=== PATIENT | male | born 1970 | race Caucasian/White ===

== ENCOUNTER 2016-09-01 16:29 | Emergency (ER) | payer BC ==
[2016-09-01 16:37] VITALS: BP 151/78
--- NOTE | 2016-09-01 18:21 | UC ---
Hand/Wrist HPI - HPI Summary HPI Summary: Pain and swelling right middle finger around nail after trimming nails recently - History Of Current Complaint Chief Complaint: UCUpperExtremity Stated Complaint: RIGHT HAND MIDDLE FINGER COMPLAINT Time Seen by Provider: 09/01/16 18:18 Hx Obtained From: Patient ?: No Mechanism Of Injury: trimming nails Onset/Duration: Sudden Onset Severity Initially: Moderate Severity Currently: Moderate Character Of Pain: Aching, Throbbing Aggravating Factor(s): Movement Alleviating: Rest, Elevation Associated Signs And Symptoms: Positive: Swelling, Redness Related History: Dominant Hand Right - Allergies/Home Medications Allergies/Adverse Reactions: Allergies Allergy/AdvReac Type Severity Reaction Status Date / Time Levofloxacin [From Levaquin] Allergy See Comment Verified 09/01/16 16:37 Home Medications: Home Medications Cholecalciferol [Vitamin D-3] 10,000 units PO DAILY 09/01/16 [History Confirmed 09/01/16] Coenzyme Q10 (Ubidecarenone) [Co Q-10] 200 mg PO DAILY 09/01/16 [History Confirmed 09/01/16] Glipizide [Glipizide ER] 5 mg PO DAILY 09/01/16 [History Confirmed 09/01/16] Lisinopril/HCTZ 20/12.5(NF) [Zestoretic 20/12.5(NF)] 1 tab PO DAILY 09/01/16 [ History Confirmed 09/01/16] Multiple Vitamins W/ Minerals [Multivitamin Adults] 1 tab PO DAILY 09/01/16 [ History Confirmed 09/01/16] Jeremiah-3 Fatty Acids [Fish Oil] 1,000 mg PO DAILY 09/01/16 [History Confirmed ] Sitagliptin Phosphate [Januvia] 100 mg PO DAILY 09/01/16 [History Confirmed ] buPROPion TAB* [Wellbutrin TAB*] 100 mg PO BID 09/01/16 [History Confirmed 09/01] PMH/Surg Hx/FS Hx/Imm Hx Previously Healthy: No Endocrine History Of: Reports: Diabetes - DM 2, Thyroid Disease - Magdi's Cardiovascular History Of: Reports: Hypertension Denies: Cardiac Disorders Respiratory History Of: Denies: COPD, Asthma GI/ History Of: Denies: Ulcer - Surgical History Surgical History: Yes Surgery Procedure, Year, and Place: cholecystectomy 1989; extraction all lowers and uppers (full dentures) - Family History Known Family History: Positive: None Family History: No reported cardiovascular issues in family lineage - Social History Occupation: Employed Full-time Lives: With Family Alcohol Use: Occasionally Substance Use Type: None Smoking Status (MU): Heavy Every Day Tobacco Smoker Type: Cigarettes Amount Used/How Often: 1.5 ppd Cessation Counseling: Counseled 3+Min - 10 Min Review of Systems Constitutional: Negative Skin: Other - pain swelling around right middle nail Eyes: Negative ENT: Negative Respiratory: Negative Cardiovascular: Negative Gastrointestinal: Negative Genitourinary: Negative Motor: Negative Neurovascular: Negative Musculoskeletal: Edema - right distal middle fingere, Myalgia - right distal middle finger Neurological: Negative Psychological: Negative All Other Systems Reviewed And Are Negative: Yes Physical Exam Triage Information Reviewed: Yes Appearance: Well-Appearing, No Pain Distress, Well-Nourished Vital Signs: Initial Vital Signs Temp 98.8 F 09/01/16 16:34 Pulse 92 09/01/16 16:34 Resp 16 09/01/16 16:34 BP 151/78 09/01/16 16:34 Pulse Ox 99 09/01/16 16:34 Vital Signs Reviewed: Yes Eye Exam: Normal Eyes: Positive: Conjunctiva Clear ENT Exam: Normal ENT: Positive: Normal ENT inspection, Hearing grossly normal, Pharynx normal, TMs normal. Negative: Nasal congestion, Nasal drainage, Trismus, Muffled/ hoarse voice Dental Exam: Normal Neck exam: Normal Neck: Positive: Supple, Nontender, No Lymphadenopathy Respiratory Exam: Normal Respiratory: Positive: Chest non-tender, Lungs clear, Normal breath sounds, No respiratory distress, No accessory muscle use Cardiovascular Exam: Normal Cardiovascular: Positive: RRR, No Murmur, Pulses Normal, Brisk Capillary Refill Abdomen Description: Positive: Splenomegaly Musculoskeletal Exam: Normal Musculoskeletal: Positive: Strength Intact, ROM Intact, Edema @ - distal right middle finger Neurological Exam: Normal Neurological: Positive: Alert, Muscle Tone Normal Psychological Exam: Normal Skin Exam: Normal Hand/Wrist Course/Dx - Course Course Of Treatment: keflex, follow BP with pcp, nictone cesation information, warm soaks - Differential Dx/Diagnosis Differential Diagnosis/HQI/PQRI: Contusion, Paronychia, Puncture Wound, Sprain, Strain Provider Diagnoses: Paronychia right 3rd finger, nicotine dependant, poorly controlled hypertension Discharge - Discharge Plan Condition: Stable Disposition: HOME Prescriptions: Sulfamethox/Trimethoprim DS* [Bactrim DS 800/160 TAB*] 1 tab PO BID #20 tab Patient Education Materials: Paronychia (ED), DASH Eating Plan (ED), Hypertension (ED), Warm Compress or Soak (ED) Referrals: [facility] [Outside] - 2 Weeks
== END 2016-09-01 18:25 | disposition home or self-care (01) ==
LOC: UCEAST 16:29
DX: L03.011 Cellulitis of right finger (principal); B96.89 Other specified bacterial agents as the cause of diseases classified elsewhere; Z71.6 Tobacco abuse counseling; F17.210 Nicotine dependence, cigarettes, uncomplicated; I10 Essential (primary) hypertension
CPT/HCPCS: 99212; G0463

== ENCOUNTER 2016-09-09 08:48 | Emergency (ER) | payer BC ==
[2016-09-09 08:56] VITALS: BP 130/72
--- NOTE | 2016-09-09 09:42 | UC ---
Jesus Avina Salem, scribed for Scarlett Coombs MD on 09/09/16 at 0932 . Skin Complaint HPI - HPI Summary HPI Summary: Patient is a 46 y/o M who presents to the with an infection and 3/10 pain to the right 3rd finger. Pt was seen here 8 days ago and was put on Bactrim. He denies any improvement of sx. Pt currently reports erythema, discoloration, and edema around nail, but denies drainage, fever, or a headache. He states that he has been using triple antibiotics and soaking it in hot water with little alleviation. Pt reports a hx of skin infection. Patients medication reviewed this visit. - History of Current Complaint Chief Complaint: UCSkin Stated Complaint: FINGER INFECTION Hx Obtained From: Patient Onset/Duration: Gradual Onset, Lasting Days, Still Present Timing: Constant Onset Severity: Moderate Current Severity: Moderate Pain Intensity: 3 Pain Scale Used: 0-10 Numeric Location: Hand (Right) - 3rd finger. Character: Swelling, Pain, Redness Aggravating: Nothing Alleviating: Other - Soaking in hot water. Triple antibiotics. Associated Signs & Symptoms: Negative: Fever, Drainage - Allergy/Home Medications Allergies/Adverse Reactions: Allergies Allergy/AdvReac Type Severity Reaction Status Date / Time Levofloxacin [From Levaquin] Allergy See Comment Verified 09/09/16 09:04 Review of Systems Constitutional: Fatigue - works about 70 hours per week., Other - diabetes treated, no increase in fingerstick readings recently. Skin: Other - Erythema, pain, discoloration, and edema around nail of right 3rd finger. No drainage. Neurological: Negative All Other Systems Reviewed And Are Negative: Yes PMH/Surg Hx/FS Hx/Imm Hx Endocrine History: Diabetes - Surgical History Surgical History: Yes Surgery Procedure, Year, and Place: cholecystectomy 1989; extraction all lowers and uppers (full dentures) - Family History Known Family History: Negative: Cardiac Disease Family History: No reported cardiovascular issues in family lineage - Social History Alcohol Use: Occasionally Substance Use Type: None Smoking Status (MU): Heavy Every Day Tobacco Smoker Type: Cigarettes Amount Used/How Often: 1.5 ppd Physical Exam Triage Information Reviewed: Yes Appearance: Well-Appearing, Pain Distress - moderate with palpation of digit. Vital Signs: Initial Vital Signs Temp 97.8 F 09/09/16 08:52 Pulse 86 09/09/16 08:52 Resp 16 09/09/16 08:52 BP 130/72 09/09/16 08:52 Pulse Ox 99 09/09/16 08:52 Vital Signs Reviewed: Yes Neck exam: Normal Respiratory: Positive: Lungs clear, Normal breath sounds Cardiovascular: Positive: RRR, No Murmur Psychological Exam: Normal Skin Exam: Other - right third digit with erythema and swelling along the medial side of the nail. There is no pointing or drainage. Area about 1.5 x 2 cm , indurated. No erythema beyond the DIP joint. Course/Dx - Course Course Of Treatment: stop bactrim, change to augmentin, increase soaks, monitor for need for I+D. - Differential Diagnoses - Skin Complaint Differential Diagnoses: Abscess, Cellulitis - Diagnoses Provider Diagnoses: paronychia right hand third digit. Discharge - Discharge Plan Condition: Stable Disposition: HOME Prescriptions: Amoxicillin/Clavulanate TAB* [Augmentin TAB 875*] 875 mg PO BID #20 tab Patient Education Materials: Paronychia (ED) Referrals: No Primary Care Phys,NOPCP [Primary Care Provider] - Additional Instructions: There is not yet a collection of pus which can be drained. Ensure that you are soaking your infected finger in hot water and salt for 5 to 10 minutes at least 3 times per day. Discontinue bactrim, and begin augmentin. Use ibuprofen 600mg up to 4 times per day to control pain. Should the area form an abscess, please return here to to Dr. White for incision and drainage. The documentation as recorded by the Jesus suh Salem accurately reflects the service I personally performed and the decisions made by me, Scarlett Coombs MD.
== END 2016-09-09 09:41 | disposition home or self-care (01) ==
LOC: UCEAST 08:48
DX: L03.011 Cellulitis of right finger (principal); E11.9 Type 2 diabetes mellitus without complications; Z72.0 Tobacco use
CPT/HCPCS: 99212; G0463

== ENCOUNTER 2017-02-24 11:23 | Emergency (ER) | payer BC ==
--- NOTE | 2017-02-24 12:37 | UC ---
Skin Complaint HPI - HPI Summary HPI Summary: Patient presents with complaints of painful skin eruptions on his right buttock , and now the sacrum. He states that prior to the outbreak he had two days where he did not feel well with fatigue and malaise. He states he has a history of shingles and believes that these symptoms are consistent with his previous outbreaks. He states the pain is worse when he sits down. He denies fever, chills, nausea, vomiting, diarrhea. - History of Current Complaint Chief Complaint: UCSkin Time Seen by Provider: 02/24/17 12:19 Stated Complaint: SHINGLES OUTBREAK Hx Obtained From: Patient Onset/Duration: Gradual Onset, Lasting Days Skin Exposure Onset/Duration: Days Ago Timing: Constant Onset Severity: Mild Current Severity: Moderate Location: Discrete, Other - right buttock and sacrum Character: Swelling, Redness, Painful Aggravating Factor(s): Touch Alleviating Factor(s): Nothing Associated Signs & Symptoms: Positive: Negative Similar Episode/Dx as: shingles - Allergy/Home Medications Allergies/Adverse Reactions: Allergies Allergy/AdvReac Type Severity Reaction Status Date / Time Levofloxacin [From Levaquin] Allergy See Comment Verified 02/24/17 11:48 Review of Systems Constitutional: Negative Skin: Rash Eyes: Negative ENT: Negative Respiratory: Negative Cardiovascular: Negative Gastrointestinal: Negative Genitourinary: Negative Motor: Negative Neurovascular: Negative Musculoskeletal: Negative Neurological: Negative Psychological: Negative All Other Systems Reviewed And Are Negative: Yes PMH/Surg Hx/FS Hx/Imm Hx Previously Healthy: Yes Endocrine History: Hypothyroidism Cardiovascular History: Hypertension - Surgical History Surgical History: Yes Surgery Procedure, Year, and Place: cholecystectomy 1989; extraction all lowers and uppers (full dentures) - Family History Known Family History: Positive: None Negative: Cardiac Disease Family History: No reported cardiovascular issues in family lineage - Social History Occupation: Employed Full-time Lives: Alone Alcohol Use: Occasionally Substance Use Type: None Smoking Status (MU): Heavy Every Day Tobacco Smoker Type: Cigarettes Amount Used/How Often: 1.5 ppd Physical Exam Triage Information Reviewed: Yes Appearance: Well-Appearing Vital Signs: Initial Vital Signs Temp 98.2 F 02/24/17 11:43 Pulse 86 02/24/17 11:43 Resp 18 02/24/17 11:43 Pulse Ox 100 02/24/17 11:43 Vital Signs Reviewed: Yes Eye Exam: Normal ENT Exam: Normal Neck exam: Normal Neck: Positive: 1 Respiratory Exam: Normal Cardiovascular Exam: Normal Abdominal Exam: Normal Musculoskeletal Exam: Normal Neurological Exam: Normal Psychological Exam: Normal Skin: Positive: Other - vesicular lesion in dematomal pattern in various stages of healing on right buttock and sacrum. Course/Dx - Course Course Of Treatment: Patient presents with clinical evidence consistent with shingles. He was treated with famvir 500 mg tid x 7 days. I recommend he f/u with PCP in tow days to discuss shingles vaccine, or suppression therapy. - Differential Diagnoses - Skin Complaint Differential Diagnoses: Varicella Zoster - Diagnoses Provider Diagnoses: varicella zoster Discharge - Discharge Plan Condition: Stable Disposition: HOME Prescriptions: Famciclovir(NF) [Famvir(NF)] 500 mg PO TID #21 tab Patient Education Materials: Shingles (ED) Forms: *Work Release Referrals: No Primary Care Phys,NOPCP [Primary Care Provider] -
== END 2017-02-24 12:34 | disposition home or self-care (01) ==
LOC: UCEAST 11:23
DX: B01.9 Varicella without complication (principal); B02.9 Zoster without complications; Z72.0 Tobacco use
CPT/HCPCS: 99212; G0463

== ENCOUNTER 2017-03-19 15:14 | Emergency (ER) | payer BC ==
[2017-03-19 15:45] VITALS: BP 132/75
[2017-03-19] MEDS ORDERED: cefTRIAXone VIAL(*) 250 MG VIAL IM ONE (16:03)
[2017-03-19] MEDS ORDERED: Azithromycin TAB* 250 MG PO ONE (16:04)
[2017-03-19] MEDS ORDERED: Lidocaine 1% MPF* 2 ML VIAL ONE (16:13)
--- NOTE | 2017-03-19 17:01 | UC ---
Complaint Male HPI - HPI Summary HPI Summary: TWO DAYS OF PURULENT DISCHARGE FROM [facility] IN MORNING. CLEAR THICK DISCHARGE THROUGHOUT THE DAY. HAD MSM RELATIONSHIP WITH NEW SEXUAL PARTNER LAST WEEK. - History of Current Complaint Chief Complaint: UCGeneralIllness Stated Complaint: PERSONAL Time Seen by Provider: 03/19/17 15:31 Hx Obtained From: Patient Onset/Duration: Gradual Onset, Lasting Days, Still Present Timing: Intermittent Severity Initially: Mild Severity Currently: Mild Pain Intensity: 0 Pain Scale Used: 0-10 Numeric Location: Penis Aggravating Factor(s): Voiding Alleviating Factor(s): Nothing Associated Signs And Symptoms: Positive: Penile Discharge. Negative: Back Pain , Fever, Hematuria, Dysuria, Blood in Stool, Rectal Pain, Appetite, Nausea, Vomiting(# Of Episodes =), Penile Swelling - Risk Factors Testicular Torsion: Negative - Allergies/Home Medications Allergies/Adverse Reactions: Allergies Allergy/AdvReac Type Severity Reaction Status Date / Time Levofloxacin [From Levaquin] Allergy See Comment Verified 03/19/17 15:22 PMH/Surg Hx/FS Hx/Imm Hx Previously Healthy: Yes - Surgical History Surgical History: Yes Surgery Procedure, Year, and Place: cholecystectomy 1989; extraction all lowers and uppers (full dentures) - Family History Known Family History: Positive: None Negative: Cardiac Disease Family History: No reported cardiovascular issues in family lineage - Social History Occupation: Employed Full-time Lives: With Family Alcohol Use: Occasionally Substance Use Type: None Smoking Status (MU): Heavy Every Day Tobacco Smoker Type: Cigarettes Amount Used/How Often: 1.5 ppd Cessation Counseling: Patient Advised to Stop - Immunization History Most Recent Influenza Vaccination: no Review of Systems Constitutional: Negative Skin: Negative Eyes: Negative ENT: Negative Respiratory: Negative Cardiovascular: Negative Gastrointestinal: Negative Genitourinary: Vaginal/Penile Discharge Motor: Negative Neurovascular: Negative Musculoskeletal: Negative Neurological: Negative Psychological: Negative Is Patient Immunocompromised?: No All Other Systems Reviewed And Are Negative: Yes Physical Exam Triage Information Reviewed: Yes Appearance: Well-Appearing, No Pain Distress, Well-Nourished Vital Signs: Initial Vital Signs Temp 97.8 F 03/19/17 15:23 Pulse 100 03/19/17 15:23 Resp 16 03/19/17 15:23 BP 132/75 03/19/17 15:23 Pulse Ox 100 03/19/17 15:23 Vital Signs Reviewed: Yes Eye Exam: Normal ENT Exam: Normal ENT: Positive: Normal ENT inspection, Hearing grossly normal, Pharynx normal, TMs normal Dental Exam: Normal Neck exam: Normal Neck: Positive: Supple, Nontender, No Lymphadenopathy Respiratory Exam: Normal Respiratory: Positive: Chest non-tender, Lungs clear, Normal breath sounds, No respiratory distress Cardiovascular Exam: Normal Cardiovascular: Positive: RRR, No Murmur, Pulses Normal Abdominal Exam: Normal Abdomen Description: Positive: Nontender, No Organomegaly Musculoskeletal Exam: Normal Musculoskeletal: Positive: Strength Intact, ROM Intact Neurological Exam: Normal Psychological Exam: Normal Skin Exam: Normal - Additional Comments NO LESIONS ON EXTERNAL GENITALIA; NO ACTIVE DISCHARGE FROM [facility]. NO SCROTAL MASSES OR LESIONS. Complaint Male Course/Dx - Differential Dx/Diagnosis Differential Diagnosis/HQI/PQRI: Epididymitis, Prostatitis, Urinary Tract Infection Provider Diagnoses: STI PROPHYLAXIS Discharge - Discharge Plan Condition: Stable Disposition: HOME Patient Education Materials: Sexually Transmitted Diseases (ED) Referrals: Trever White MD [Primary Care Provider] -
== END 2017-03-19 16:44 | disposition home or self-care (01) ==
LOC: UCCORT 15:14
DX: R36.9 Urethral discharge, unspecified (principal); Z11.3 Encounter for screening for infections with a predominantly sexual mode of transmission; Z88.1 Allergy status to other antibiotic agents; F17.210 Nicotine dependence, cigarettes, uncomplicated
CPT/HCPCS: 87491; 87591; 96372; 99212; A9270-GY; G0463; J0696

== ENCOUNTER 2022-08-07 07:22 | Inpatient (IN) ==
[2022-08-07 09:26] LABS: ABS Lymphocytes 2.1 10^3/uL (1.0-4.8); ABS Monocytes 0.8 10^3/uL (0.0-1.1); ABS Neutrophils 6.1 10^3/uL (1.5-7.6); Eosinophil % 0.5 %; Hematocrit 20.2 % (38-53); Hemoglobin 6.9 g/dL (13.2-16.3); Lymphocyte % 23.5 %; Mean Corpuscular Hemoglobin 30.3 pg (27-33); Mean Corpuscular Hgb Conc 34.4 g/dL (31-36); Mean Corpuscular Volume 88.1 fL (80-97); Mean Platelet Volume 7.5 fL (7.5-11.2); Platelet Count 208 10^3/uL (150-450); Red Blood Count 2.29 10^6/uL (4.06-5.63); Red Cell Distribution Width 17.1 % (12-17)
[2022-08-07 09:48] LABS: Albumin 2.7 g/dL (3.2-5.2); Albumin/Globulin Ratio 0.3 (1-3); Calcium 8.1 mg/dL (8.6-10.3); Creatinine, Serum 5.5 mg/dL (0.67-1.17); Globulin 8.8 g/dL (2-4); Magnesium 1.9 mg/dL (1.9-2.7); Phosphorus 5.6 mg/dL (2.5-5.0); Potassium 3.6 mmol/L (3.5-5.0); Total Bilirubin 0.3 mg/dL (0.2-1.0); Total Protein 11.5 g/dL (6.4-8.9); eGFR CKD-EPI 11.8 (>60)
[2022-08-07] MEDS ORDERED: Ondansetron 4 mg VIAL 2 MG/ML 2 ml VIAL IV ONE (10:13)
[2022-08-07] MEDS ORDERED: NS 0.9% 1000 ml BAG 1,000 ML IV ONE (10:13)
[2022-08-07 10:14] LABS: Folate 17.43 ng/mL (5.90-24.80)
[2022-08-07 10:29] LABS: High Sensitivity Troponin 1 Hr 10 pg/mL (<20)
[2022-08-07 10:30] LABS: HIV 4th Generation Nonreactive (Nonreactive)
[2022-08-07] MEDS ORDERED: cefTRIAXone 1 gm/50 mL D5W 1 GM/50 ML BAG IV ONE (12:09)
[2022-08-07 12:18] LABS: Urine Appearance Cloudy; Urine Bilirubin Negative (Negative); Urine Blood 2+ (Negative); Urine Color Yellow; Urine Glucose 1+(50 mg/dL) (Negative); Urine Ketones Negative (Negative); Urine Nitrite Negative (Negative); Urine Protein 2+(100 mg/dL) (Negative); Urine Specific Gravity 1.006 (1.002-1.030); Urine Urobilinogen Negative (Negative)
[2022-08-07 12:57] LABS: RBC Parasite Smear No Parasites Seen (No Parasite)
[2022-08-07] MEDS ORDERED: Lactated Ringers 1000 ml BAG 1,000 ML IV SCH (13:00)
[2022-08-07 13:20] LABS: Urine Bacteria 1+ (Absent); Urine Red Blood Cell 1+(3-5/hpf) (Absent); Urine Squamous Epithelial Cell Present (Absent); Urine White Blood Cell 3+(>20/hpf) (Absent)
[2022-08-07] MEDS ORDERED: Pantoprazole VIAL 40 MG VIAL IV ONE (13:25)
[2022-08-07] MEDS ORDERED: NS 0.9% 1000 ml BAG 1,000 ML IV SCH (13:30)
[2022-08-07] MEDS ORDERED: Piperacillin/Tazobac ADVAN 2.25 GM in NS 0.9% 100 ml BAG 100 ML IV ONE (13:33)
[2022-08-07 13:39] LABS: Corrected Retic Count 0.5 % (0.5-1.5); Hematocrit for Retic CNT 24.2 % (38-53); RBC Retic Count 2.69 10^6/ul (4.06-5.63)
[2022-08-07 13:45] LABS: Osmolality Serum 284 mOsm/kg (275-295)
[2022-08-07] MEDS ORDERED: Zosyn per Pharmacy NOTE FOLLOW UP SCH (14:00)
[2022-08-07 14:14] LABS: TSH Ultra Thyroid Stim Horm 0.75 mcIU/mL (0.34-5.60)
[2022-08-07 14:16] LABS: Free T4 0.81 ng/dL (0.61-1.12)
[2022-08-07 14:20] LABS: Ferritin 179.3 ng/mL (24-336)
[2022-08-07] MEDS ORDERED: Zosyn 3.375 GM IV - ED ONCE IV ONE (14:45)
[2022-08-07] MEDS ORDERED: Dextrose 50% Syringe 50 ml 25 GM/50 ML SYRINGE IV PUSH PRN (17:50)
[2022-08-07] MEDS ORDERED: Ondansetron 4 mg VIAL 2 MG/ML 2 ml VIAL IV PRN (17:54)
[2022-08-07 19:35] LABS: Hepatitis B Surface Antigen Nonreactive (Nonreactive)
[2022-08-07 19:40] LABS: Hepatitis A Ab IgM Negative (Negative)
[2022-08-07 19:41] LABS: Hepatitis B Core IgM Nonreactive (Nonreactive)
[2022-08-07 19:53] LABS: Hepatitis C Antibody Negative (Negative)
[2022-08-07 20:26] LABS: ABS Eosinophils 0.1 10^3/uL (0.0-0.5); ABS Lymphocytes 2.9 10^3/uL (1.0-4.8); ABS Monocytes 0.7 10^3/uL (0.0-1.1); ABS Nucleated RBC 0.01 10^3/ul; Eosinophil % 0.9 %; Hematocrit 24.4 % (38-53); Hemoglobin 8.3 g/dL (13.2-16.3); Mean Corpuscular Hemoglobin 29.8 pg (27-33); Mean Corpuscular Hgb Conc 33.9 g/dL (31-36); Mean Platelet Volume 7.3 fL (7.5-11.2); Nucleated Red Blood Cells % 0.1 /100 WBC (0.0-0.4); Platelet Count 209 10^3/uL (150-450); Red Blood Count 2.77 10^6/uL (4.06-5.63); White Blood Count 9.8 10^3/uL (3.6-10.2)
[2022-08-07 20:42] LABS: INR 1.39 (0.88-1.18)
[2022-08-07 21:12] LABS: C Reactive Protein 87.42 mg/L (<8.01); Calcium 7.5 mg/dL (8.6-10.3); Creatinine, Serum 6.62 mg/dL (0.67-1.17); Magnesium 1.9 mg/dL (1.9-2.7); Phosphorus 5.8 mg/dL (2.5-5.0); Potassium 3.6 mmol/L (3.5-5.0); eGFR CKD-EPI 9.4 (>60)
[2022-08-07] MEDS: ZOSYN 3.375 GM Q12H per EXTENDED INFUSION IV SCH (22:40)
[2022-08-07 23:34] LABS: Hematocrit 23.3 % (38-53)
[2022-08-08 07:00] LABS: ABS Eosinophils 0.1 10^3/uL (0.0-0.5); ABS Monocytes 0.6 10^3/uL (0.0-1.1); ABS Neutrophils 4.7 10^3/uL (1.5-7.6); Hematocrit 23.5 % (38-53); Lymphocyte % 26.7 %; Mean Corpuscular Hemoglobin 30.1 pg (27-33); Mean Corpuscular Volume 88.6 fL (80-97); Mean Platelet Volume 7.4 fL (7.5-11.2); Platelet Count 189 10^3/uL (150-450); Red Blood Count 2.65 10^6/uL (4.06-5.63); Red Cell Distribution Width 17.4 % (12-17); White Blood Count 7.4 10^3/uL (3.6-10.2)
[2022-08-08 07:46] LABS: Albumin 2.3 g/dL (3.2-5.2); Albumin/Globulin Ratio 0.3 (1-3); Calcium 7.8 mg/dL (8.6-10.3); Creatinine, Serum 7.11 mg/dL (0.67-1.17); Globulin 7.9 g/dL (2-4); Phosphorus 7.3 mg/dL (2.5-5.0); Potassium 3.7 mmol/L (3.5-5.0); Total Bilirubin 0.2 mg/dL (0.2-1.0); Total Protein 10.2 g/dL (6.4-8.9); eGFR CKD-EPI 8.7 (>60)
[2022-08-08] MEDS ORDERED: NS 0.9% 1000 ml BAG 1,000 ML IV SCH (08:30)
[2022-08-08] MEDS ORDERED: Pantoprazole VIAL 40 MG VIAL IV SCH (09:00)
[2022-08-08] MEDS: ZOSYN 3.375 GM Q12H per EXTENDED INFUSION IV SCH ×2 (09:34→21:27)
[2022-08-08] MEDS ORDERED: Lactated Ringers 1000 ml BAG 1,000 ML IV ONE (14:49)
[2022-08-08 20:23] LABS: Hematocrit 23.1 % (38-53); Hemoglobin 7.8 g/dL (13.2-16.3); Mean Corpuscular Hemoglobin 29.9 pg (27-33); Mean Corpuscular Hgb Conc 33.7 g/dL (31-36); Mean Corpuscular Volume 88.7 fL (80-97); Mean Platelet Volume 7.9 fL (7.5-11.2); Platelet Count 206 10^3/uL (150-450); Red Cell Distribution Width 17.3 % (12-17); White Blood Count 8.3 10^3/uL (3.6-10.2)
[2022-08-08 20:49] LABS: Calcium 7.3 mg/dL (8.6-10.3); Creatinine, Serum 7.73 mg/dL (0.67-1.17); eGFR CKD-EPI 7.8 (>60)
[2022-08-09] MEDS: ZOSYN 3.375 GM Q12H per EXTENDED INFUSION IV SCH ×2 (07:51→21:32)
[2022-08-09 08:36] LABS: ABS Eosinophils 0.1 10^3/uL (0.0-0.5); ABS Lymphocytes 2.2 10^3/uL (1.0-4.8); ABS Monocytes 0.5 10^3/uL (0.0-1.1); ABS Neutrophils 4.5 10^3/uL (1.5-7.6); ABS Nucleated RBC 0.01 10^3/ul; Eosinophil % 1.2 %; Hematocrit 22.2 % (38-53); Hemoglobin 7.5 g/dL (13.2-16.3); Lymphocyte % 30.5 %; Mean Corpuscular Hgb Conc 33.9 g/dL (31-36); Mean Corpuscular Volume 88.5 fL (80-97); Mean Platelet Volume 7.7 fL (7.5-11.2); Nucleated Red Blood Cells % 0.1 /100 WBC (0.0-0.4); Platelet Count 191 10^3/uL (150-450); Red Blood Count 2.51 10^6/uL (4.06-5.63); Red Cell Distribution Width 17.1 % (12-17); White Blood Count 7.4 10^3/uL (3.6-10.2)
[2022-08-09 09:23] LABS: Albumin 2.4 g/dL (3.2-5.2); Albumin/Globulin Ratio 0.3 (1-3); Calcium 7.6 mg/dL (8.6-10.3); Creatinine, Serum 8.46 mg/dL (0.67-1.17); Globulin 7.7 g/dL (2-4); Potassium 4.1 mmol/L (3.5-5.0); Total Bilirubin 0.2 mg/dL (0.2-1.0); Total Protein 10.1 g/dL (6.4-8.9)
[2022-08-09] MEDS: Desmopressin Acetate 30 MCG in NS 0.9% 50 ML 50 ML IVPB ONE ×2 (09:50→11:42)
[2022-08-09 10:13] LABS: Magnesium 1.8 mg/dL (1.9-2.7); Phosphorus 7.8 mg/dL (2.5-5.0)
[2022-08-09] MEDS ORDERED: Magnesium Sulfate 2 gm BAG 2 GM/50 ML BAG IVPB ONE (11:16)
[2022-08-10] MEDS ORDERED: NS 0.9% 1000 ml BAG 200 ML IV PRN ×2 (07:49→16:04)
[2022-08-10] MEDS ORDERED: Albumin Human 25% 25 GM/100 ML BTL IV PRN ×2 (07:49→16:04)
[2022-08-10] MEDS ORDERED: NS 0.9% 1000 ml BAG 100 ML IV PRN ×2 (07:49→16:04)
[2022-08-10] MEDS: ZOSYN 3.375 GM Q12H per EXTENDED INFUSION IV SCH ×2 (08:35→22:15)
[2022-08-10 08:47] LABS: ABS Eosinophils 0.1 10^3/uL (0.0-0.5); ABS Lymphocytes 2.4 10^3/uL (1.0-4.8); ABS Monocytes 0.4 10^3/uL (0.0-1.1); ABS Neutrophils 4.3 10^3/uL (1.5-7.6); ABS Nucleated RBC 0.01 10^3/ul; Eosinophil % 1.4 %; Hematocrit 21.7 % (38-53); Hemoglobin 7.3 g/dL (13.2-16.3); Lymphocyte % 32.8 %; Mean Corpuscular Hemoglobin 30.5 pg (27-33); Mean Corpuscular Hgb Conc 33.5 g/dL (31-36); Mean Corpuscular Volume 91.1 fL (80-97); Mean Platelet Volume 7.8 fL (7.5-11.2); Nucleated Red Blood Cells % 0.1 /100 WBC (0.0-0.4); Platelet Count 202 10^3/uL (150-450); Red Blood Count 2.39 10^6/uL (4.06-5.63); White Blood Count 7.2 10^3/uL (3.6-10.2)
[2022-08-10 08:54] LABS: Albumin 2.4 g/dL (3.2-5.2); Albumin/Globulin Ratio 0.3 (1-3); Calcium 7.8 mg/dL (8.6-10.3); Creatinine, Serum 9.15 mg/dL (0.67-1.17); Globulin 7.8 g/dL (2-4); Magnesium 2.1 mg/dL (1.9-2.7); Phosphorus 7.9 mg/dL (2.5-5.0); Potassium 3.9 mmol/L (3.5-5.0); Total Bilirubin 0.2 mg/dL (0.2-1.0); Total Protein 10.2 g/dL (6.4-8.9); eGFR CKD-EPI 6.4 (>60)
[2022-08-10] MEDS ORDERED: Vancomycin 1,000 MG in NS 0.9% 250 ml 250 ML IVPB ONE (10:00)
[2022-08-10] MEDS ORDERED: Lidocaine 1% VIAL 10 MG/ML VIAL 30 ML ONE (11:39)
[2022-08-10] MEDS ORDERED: Heparin 2 UNITS/ML IVPREMIX 1,000 UNIT/500 ML BAG IV ONE ×2 (11:39→11:46)
[2022-08-10 11:58] LABS: Hepatitis B Surface Antigen Nonreactive (Nonreactive)
[2022-08-10] MEDS ORDERED: Heparin 5000 UNITS/ML 1 mL VIAL ONE (12:07)
[2022-08-10] MEDS ORDERED: Midazolam 5 mg/5 ml VIAL 1 mg/ml 5 ml VIAL (5 mg) ONE (12:08)
[2022-08-10] MEDS ORDERED: fentaNYL 100 mcg/2 ml 50 MCG/ML VIAL ONE ×2 (12:08→12:25)
[2022-08-10 12:15] LABS: Hepatitis B Surface Ab Not Immune (Immune)
[2022-08-10 12:29] LABS: Complement C3 33 mg/dL (75 - 175)
[2022-08-10] MEDS: Heparin 1,000 UNIT/ML 10 ml (10,000 UNITS) CATHLAB/DIALYSIS DIALYSIS ONE ×4 (13:45→17:00)
[2022-08-10 17:29] LABS: Lambda Free Light Chain, S 1.37 mg/dL
[2022-08-11 06:40] LABS: ABS Eosinophils 0.1 10^3/uL (0.0-0.5); ABS Lymphocytes 2.3 10^3/uL (1.0-4.8); ABS Monocytes 0.5 10^3/uL (0.0-1.1); ABS Neutrophils 4.4 10^3/uL (1.5-7.6); Eosinophil % 1.3 %; Hematocrit 22.4 % (38-53); Hemoglobin 7.7 g/dL (13.2-16.3); Mean Corpuscular Hemoglobin 30.1 pg (27-33); Mean Corpuscular Hgb Conc 34.3 g/dL (31-36); Mean Corpuscular Volume 87.8 fL (80-97); Mean Platelet Volume 7.6 fL (7.5-11.2); Platelet Count 233 10^3/uL (150-450); Red Blood Count 2.55 10^6/uL (4.06-5.63); Red Cell Distribution Width 16.8 % (12-17); White Blood Count 7.4 10^3/uL (3.6-10.2)
[2022-08-11 07:41] LABS: Albumin 2.3 g/dL (3.2-5.2); Albumin/Globulin Ratio 0.3 (1-3); Calcium 7.5 mg/dL (8.6-10.3); Creatinine, Serum 7.19 mg/dL (0.67-1.17); Globulin 7.2 g/dL (2-4); Magnesium 1.9 mg/dL (1.9-2.7); Phosphorus 6.4 mg/dL (2.5-5.0); Total Bilirubin 0.2 mg/dL (0.2-1.0); Total Protein 9.5 g/dL (6.4-8.9); eGFR CKD-EPI 8.5 (>60)
[2022-08-11] MEDS: ZOSYN 3.375 GM Q12H per EXTENDED INFUSION IV SCH (08:06)
[2022-08-11] MEDS: Heparin 1,000 UNIT/ML 10 ml (10,000 UNITS) CATHLAB/DIALYSIS DIALYSIS SCH ×2 (09:58→11:45)
[2022-08-11] MEDS ORDERED: Dexamethasone IV 4 MG/ML VIAL 1 ml VIAL IV SLOW PU SCH (12:00)
[2022-08-11] MEDS: Dexamethasone IV 40 MG in NS 0.9% 50 ML 50 ML IVPB SCH (13:25)
[2022-08-11] MEDS: Pantoprazole VIAL 40 MG VIAL IV SCH (13:25)
[2022-08-11 16:41] LABS: Anaplasma phagocytophilum Negative (Negative); B. miyamotoi PCR, B Negative (Negative); Babesia divergens/MO-1 Negative (Negative); Babesia ducani Negative (Negative); Ehrlichia chaffeensis Negative (Negative); Ehrlichia ewingii/canis Negative (Negative); Ehrlichia muris eauclairensis Negative (Negative)
[2022-08-11 17:12] LABS: Case Number KR-23-2796
[2022-08-11 18:26] LABS: Tissue Transglutaminase IgA Ab <1.2 U/mL; Tissue Transglutaminase IgG Ab 2.4 U/mL
[2022-08-11] MEDS: ceFAZolin 1 GM in Dextrose 1 GM/50 ML BAG IVPB SCH (19:39)
[2022-08-12 06:29] LABS: Flag, M-protein Isotype Positive (Negative)
[2022-08-12 06:39] LABS: ABS Monocytes 0.6 10^3/uL (0.0-1.1); ABS Neutrophils 8.2 10^3/uL (1.5-7.6); Eosinophil % 0.1 %; Hematocrit 24.8 % (38-53); Hemoglobin 8.5 g/dL (13.2-16.3); Lymphocyte % 18.1 %; Mean Corpuscular Hemoglobin 30.5 pg (27-33); Mean Corpuscular Hgb Conc 34.2 g/dL (31-36); Mean Platelet Volume 7.9 fL (7.5-11.2); Platelet Count 256 10^3/uL (150-450); Red Blood Count 2.78 10^6/uL (4.06-5.63); Red Cell Distribution Width 16.5 % (12-17); White Blood Count 10.9 10^3/uL (3.6-10.2)
[2022-08-12 07:27] LABS: Albumin 2.4 g/dL (3.2-5.2); Albumin/Globulin Ratio 0.3 (1-3); Calcium 7.7 mg/dL (8.6-10.3); Creatinine, Serum 5.49 mg/dL (0.67-1.17); Globulin 7.4 g/dL (2-4); Magnesium 1.5 mg/dL (1.9-2.7); Phosphorus 5.1 mg/dL (2.5-5.0); Potassium 3.9 mmol/L (3.5-5.0); Total Bilirubin 0.2 mg/dL (0.2-1.0); Total Protein 9.8 g/dL (6.4-8.9); eGFR CKD-EPI 11.8 (>60)
[2022-08-12] MEDS ORDERED: Magnesium Sulfate 2 gm BAG 2 GM/50 ML BAG IVPB ONE (07:55)
[2022-08-12] MEDS: Pantoprazole VIAL 40 MG VIAL IV SCH (08:23)
[2022-08-12 08:41] LABS: Albumin 3.1 g/dL (3.4-4.7); Total Protein(PEP) 10.8 g/dL (6.3 - 7.9)
[2022-08-12] MEDS ORDERED: Lidocaine 2% PF 5 ML VIAL INJ ONE (08:56)
[2022-08-12] MEDS: Dexamethasone IV 40 MG in NS 0.9% 50 ML 50 ML IVPB SCH (10:35)
[2022-08-12 12:04] LABS: Cryoglobulin Negative %ppt (Negative)
[2022-08-12 13:22] LABS: JO-1 Antibody <0.2 U; RNP Antibody, IgG <0.2 U; SS-A/Ro Antibody <0.2 U; SS-B/La Antibody <0.2 U; Scl 70 Ab, IgG, S <0.2 U; Sm (Smith) IgG Antibody <0.2 U
[2022-08-12 13:33] LABS: Myeloperoxidase Antibody <0.2 U; Proteinase 3 <0.2 U
[2022-08-12] MEDS: Heparin 1,000 UNIT/ML 10 ml (10,000 UNITS) CATHLAB/DIALYSIS DIALYSIS SCH ×4 (13:44→17:02)
[2022-08-12 13:57] LABS: Immunoglobulin A 12 mg/dL (61 - 356); Immunoglobulin G 6590 mg/dL (767 - 1590); Immunoglobulin M 9 mg/dL (37 - 286)
[2022-08-12] MEDS ORDERED: NS 0.9% 1000 ml BAG 100 ML IV PRN (21:15)
[2022-08-12] MEDS ORDERED: Albumin Human 25% 25 GM/100 ML BTL IV PRN (21:15)
[2022-08-12] MEDS ORDERED: NS 0.9% 1000 ml BAG 200 ML IV PRN (21:15)
[2022-08-12] MEDS: ceFAZolin 1 GM in Dextrose 1 GM/50 ML BAG IVPB SCH (22:14)
[2022-08-12] MEDS: guaiFENesin DM SUGAR FREE 100 MG/10 MG 5 ML UDC PO PRN (23:10)
[2022-08-13 06:21] LABS: ABS Lymphocytes 1.9 10^3/uL (1.0-4.8); ABS Monocytes 0.7 10^3/uL (0.0-1.1); ABS Neutrophils 6.7 10^3/uL (1.5-7.6); ABS Nucleated RBC 0.01 10^3/ul; Hematocrit 23.5 % (38-53); Hemoglobin 7.5 g/dL (13.2-16.3); Lymphocyte % 20.5 %; Mean Corpuscular Hemoglobin 30.1 pg (27-33); Mean Corpuscular Hgb Conc 32.1 g/dL (31-36); Mean Corpuscular Volume 93.9 fL (80-97); Mean Platelet Volume 8.1 fL (7.5-11.2); Nucleated Red Blood Cells % 0.1 /100 WBC (0.0-0.4); Platelet Count 251 10^3/uL (150-450); White Blood Count 9.2 10^3/uL (3.6-10.2)
[2022-08-13] MEDS: guaiFENesin DM SUGAR FREE 100 MG/10 MG 5 ML UDC PO PRN (06:25)
[2022-08-13 06:38] LABS: Albumin 2.3 g/dL (3.2-5.2); Calcium 7.7 mg/dL (8.6-10.3); Magnesium 1.7 mg/dL (1.9-2.7); Total Bilirubin 0.1 mg/dL (0.2-1.0)
[2022-08-13 06:44] LABS: Albumin/Globulin Ratio 0.3 (1-3); Creatinine, Serum 4.39 mg/dL (0.67-1.17); Phosphorus 5.6 mg/dL (2.5-5.0); Total Protein 9.3 g/dL (6.4-8.9); eGFR CKD-EPI 15.4 (>60)
[2022-08-13] MEDS ORDERED: Magnesium Sulfate IV 3 GM in NS 0.9% 100 ml BAG 100 ML IVPB ONE (08:15)
[2022-08-13] MEDS: Heparin 1,000 UNIT/ML 10 ml (10,000 UNITS) CATHLAB/DIALYSIS DIALYSIS SCH ×4 (09:23→13:28)
[2022-08-13] MEDS: Pantoprazole VIAL 40 MG VIAL IV SCH (09:46)
[2022-08-13] MEDS: Dexamethasone IV 40 MG in NS 0.9% 50 ML 50 ML IVPB SCH (09:46)
[2022-08-13] MEDS ORDERED: Lidocaine 2% PF 5 ML VIAL INJ ONE (13:00)
[2022-08-13 15:56] LABS: Urine TP Concentration 534 mg/dL
[2022-08-13 16:26] LABS: Phospholipid (Cardiolipin) IgA < 9.4 APL
[2022-08-13] MEDS ORDERED: Dextrose 50% Syringe 50 ml 25 GM/50 ML SYRINGE IV PUSH PRN ×2 (19:06→23:01)
[2022-08-13] MEDS: ceFAZolin 1 GM in Dextrose 1 GM/50 ML BAG IVPB SCH (21:38)
[2022-08-13] MEDS: Insulin GLARGINE 100 un/ml 10 ml VIAL SUBCUT SCH (21:44)
[2022-08-13 22:33] LABS: Glucose Confirmatory 457 mg/dL (70-100)
[2022-08-14 06:56] LABS: ABS Lymphocytes 2.2 10^3/uL (1.0-4.8); ABS Monocytes 0.7 10^3/uL (0.0-1.1); ABS Neutrophils 6.8 10^3/uL (1.5-7.6); Eosinophil % 0.1 %; Hematocrit 23.8 % (38-53); Lymphocyte % 22.8 %; Mean Corpuscular Hemoglobin 30.5 pg (27-33); Mean Corpuscular Hgb Conc 33.7 g/dL (31-36); Mean Corpuscular Volume 90.5 fL (80-97); Platelet Count 320 10^3/uL (150-450); Red Blood Count 2.63 10^6/uL (4.06-5.63); Red Cell Distribution Width 17.2 % (12-17); White Blood Count 9.8 10^3/uL (3.6-10.2)
[2022-08-14 07:15] LABS: Albumin 2.5 g/dL (3.2-5.2); Albumin/Globulin Ratio 0.4 (1-3); Calcium 7.9 mg/dL (8.6-10.3); Magnesium 1.8 mg/dL (1.9-2.7); Phosphorus 4.5 mg/dL (2.5-5.0); Potassium 3.8 mmol/L (3.5-5.0); Total Bilirubin 0.2 mg/dL (0.2-1.0); Total Protein 9.5 g/dL (6.4-8.9); eGFR CKD-EPI 17.3 (>60)
[2022-08-14] MEDS ORDERED: Magnesium Sulfate IV 3 GM in NS 0.9% 100 ml BAG 100 ML IVPB ONE (08:30)
[2022-08-14] MEDS: Pantoprazole VIAL 40 MG VIAL IV SCH (09:01)
[2022-08-14] MEDS: Dexamethasone IV 40 MG in NS 0.9% 50 ML 50 ML IVPB SCH (09:01)
[2022-08-14] MEDS: Insulin GLARGINE 100 un/ml 10 ml VIAL SUBCUT SCH ×2 (09:52→21:57)
[2022-08-14] MEDS: ceFAZolin 1 GM in Dextrose 1 GM/50 ML BAG IVPB SCH (21:54)
[2022-08-15 06:25] LABS: ABS Lymphocytes 2.3 10^3/uL (1.0-4.8); ABS Monocytes 0.8 10^3/uL (0.0-1.1); ABS Neutrophils 7.2 10^3/uL (1.5-7.6); ABS Nucleated RBC 0.01 10^3/ul; Eosinophil % 0.1 %; Hematocrit 23.4 % (38-53); Lymphocyte % 22.3 %; Mean Corpuscular Hemoglobin 30.9 pg (27-33); Mean Corpuscular Hgb Conc 34.1 g/dL (31-36); Mean Corpuscular Volume 90.6 fL (80-97); Mean Platelet Volume 7.5 fL (7.5-11.2); Nucleated Red Blood Cells % 0.1 /100 WBC (0.0-0.4); Platelet Count 346 10^3/uL (150-450); Red Blood Count 2.58 10^6/uL (4.06-5.63); White Blood Count 10.3 10^3/uL (3.6-10.2)
[2022-08-15 06:51] LABS: Albumin 2.4 g/dL (3.2-5.2); Albumin/Globulin Ratio 0.4 (1-3); Creatinine, Serum 4.38 mg/dL (0.67-1.17); Globulin 6.4 g/dL (2-4); Magnesium 1.9 mg/dL (1.9-2.7); Phosphorus 5.1 mg/dL (2.5-5.0); Potassium 3.8 mmol/L (3.5-5.0); Total Bilirubin 0.1 mg/dL (0.2-1.0); Total Protein 8.8 g/dL (6.4-8.9); eGFR CKD-EPI 15.5 (>60)
[2022-08-15] MEDS: Pantoprazole VIAL 40 MG VIAL IV SCH (10:10)
[2022-08-15] MEDS: Insulin GLARGINE 100 un/ml 10 ml VIAL SUBCUT SCH ×2 (10:12→21:31)
[2022-08-15] MEDS: ceFAZolin 1 GM in Dextrose 1 GM/50 ML BAG IVPB SCH (21:32)
[2022-08-16 06:12] LABS: ABS Eosinophils 0.2 10^3/uL (0.0-0.5); ABS Lymphocytes 2.2 10^3/uL (1.0-4.8); ABS Monocytes 0.7 10^3/uL (0.0-1.1); ABS Neutrophils 6.6 10^3/uL (1.5-7.6); ABS Nucleated RBC 0.01 10^3/ul; Eosinophil % 1.6 %; Hematocrit 26.2 % (38-53); Hemoglobin 8.8 g/dL (13.2-16.3); Lymphocyte % 22.4 %; Mean Corpuscular Hgb Conc 33.5 g/dL (31-36); Mean Corpuscular Volume 89.7 fL (80-97); Mean Platelet Volume 6.9 fL (7.5-11.2); Nucleated Red Blood Cells % 0.1 /100 WBC (0.0-0.4); Platelet Count 382 10^3/uL (150-450); Red Blood Count 2.92 10^6/uL (4.06-5.63); Red Cell Distribution Width 17.3 % (12-17); White Blood Count 9.6 10^3/uL (3.6-10.2)
[2022-08-16 06:43] LABS: Calcium 7.8 mg/dL (8.6-10.3); Creatinine, Serum 4.63 mg/dL (0.67-1.17); Magnesium 1.6 mg/dL (1.9-2.7); Potassium 4.2 mmol/L (3.5-5.0); eGFR CKD-EPI 14.5 (>60)
[2022-08-16] MEDS ORDERED: Lidocaine 2% PF 5 ML VIAL INJ ONE (09:00)
[2022-08-16] MEDS: Insulin GLARGINE 100 un/ml 10 ml VIAL SUBCUT SCH ×2 (09:02→21:41)
[2022-08-16] MEDS: Heparin 1,000 UNIT/ML 10 ml (10,000 UNITS) CATHLAB/DIALYSIS DIALYSIS SCH ×4 (09:14→13:04)
[2022-08-16] MEDS: ceFAZolin 1 GM in Dextrose 1 GM/50 ML BAG IVPB SCH (21:42)
[2022-08-17 07:15] LABS: Calcium 7.7 mg/dL (8.6-10.3); Creatinine, Serum 3.77 mg/dL (0.67-1.17); Potassium 4.2 mmol/L (3.5-5.0); eGFR CKD-EPI 18.5 (>60)
[2022-08-17 07:20] LABS: ABS Eosinophils 0.1 10^3/uL (0.0-0.5); ABS Lymphocytes 2.3 10^3/uL (1.0-4.8); ABS Monocytes 0.7 10^3/uL (0.0-1.1); ABS Neutrophils 4.7 10^3/uL (1.5-7.6); ABS Nucleated RBC 0.05 10^3/ul; Eosinophil % 1.6 %; Hematocrit 28.3 % (38-53); Hemoglobin 8.9 g/dL (13.2-16.3); Lymphocyte % 29.3 %; Mean Corpuscular Hemoglobin 30.3 pg (27-33); Mean Corpuscular Hgb Conc 31.6 g/dL (31-36); Mean Corpuscular Volume 95.8 fL (80-97); Mean Platelet Volume 7.7 fL (7.5-11.2); Nucleated Red Blood Cells % 0.6 /100 WBC (0.0-0.4); Platelet Count 268 10^3/uL (150-450); Red Blood Count 2.95 10^6/uL (4.06-5.63); Red Cell Distribution Width 18.3 % (12-17); White Blood Count 7.9 10^3/uL (3.6-10.2)
[2022-08-17] MEDS: Insulin GLARGINE 100 un/ml 10 ml VIAL SUBCUT SCH (08:26)
[2022-08-17] MEDS ORDERED: Lorazepam PYXIS KEY PRN (09:51)
[2022-08-17] MEDS ORDERED: LORazepam 2 mg VIAL 1 ml IV PUSH ONE (10:15)
[2022-08-17] MEDS ORDERED: Lidocaine 2% PF 5 ML VIAL INJ ONE (10:18)
[2022-08-17] MEDS ORDERED: Metformin ER 750 mg TAB (NF) PO SCH (11:00)
[2022-08-17] MEDS ORDERED: NS 0.9% IVPB ONE (13:30)
[2022-08-17] MEDS ORDERED: CYCLOPHOSPHAMIDE IVPB ONE (13:30)
[2022-08-17 15:40] LABS: ABS Basophils 0.1 10^3/uL (0.0-0.1); ABS Eosinophils 0.2 10^3/uL (0.0-0.5); ABS Lymphocytes 2.6 10^3/uL (1.0-4.8); ABS Monocytes 0.7 10^3/uL (0.0-1.1); ABS Neutrophils 5.6 10^3/uL (1.5-7.6); ABS Nucleated RBC 0.02 10^3/ul; Eosinophil % 1.8 %; Hematocrit 24.4 % (38-53); Hemoglobin 8.2 g/dL (13.2-16.3); Lymphocyte % 28.8 %; Mean Corpuscular Hemoglobin 30.2 pg (27-33); Mean Corpuscular Hgb Conc 33.7 g/dL (31-36); Mean Corpuscular Volume 89.7 fL (80-97); Mean Platelet Volume 6.9 fL (7.5-11.2); Nucleated Red Blood Cells % 0.2 /100 WBC (0.0-0.4); Platelet Count 326 10^3/uL (150-450); Red Blood Count 2.72 10^6/uL (4.06-5.63); Red Cell Distribution Width 17.3 % (12-17); White Blood Count 9.2 10^3/uL (3.6-10.2)
[2022-08-17 15:54] LABS: Activated Partial Thrombo Time 25.7 seconds (26.0-38.0); INR 1.33 (0.88-1.18)
[2022-08-17 16:17] LABS: Creatinine, Serum 3.7 mg/dL (0.67-1.17)
[2022-08-17] MEDS: ceFAZolin 1 GM in Dextrose 1 GM/50 ML BAG IVPB SCH (21:38)
[2022-08-17] MEDS: Heparin 5000 UNITS/ML 1 mL VIAL SUBCUT SCH (21:39)
[2022-08-18] MEDS: Heparin 5000 UNITS/ML 1 mL VIAL SUBCUT SCH ×2 (08:38→21:05)
[2022-08-18] MEDS ORDERED: Insulin GLARGINE 100 un/ml 10 ml VIAL SUBCUT SCH (09:00)
[2022-08-18] MEDS: Heparin 1,000 UNIT/ML 10 ml (10,000 UNITS) CATHLAB/DIALYSIS DIALYSIS SCH ×5 (10:52→14:16)
[2022-08-18] MEDS: ceFAZolin 2 GM in NS PREMIX 2 GM/100 ML BAG IVPB SCH (17:10)
[2022-08-19 06:25] LABS: ABS Eosinophils 0.1 10^3/uL (0.0-0.5); ABS Lymphocytes 2.2 10^3/uL (1.0-4.8); ABS Monocytes 0.7 10^3/uL (0.0-1.1); ABS Neutrophils 4.8 10^3/uL (1.5-7.6); ABS Nucleated RBC 0.02 10^3/ul; Eosinophil % 1.8 %; Hematocrit 26.2 % (38-53); Hemoglobin 8.7 g/dL (13.2-16.3); Lymphocyte % 27.8 %; Mean Corpuscular Hemoglobin 29.7 pg (27-33); Mean Corpuscular Hgb Conc 33.1 g/dL (31-36); Mean Corpuscular Volume 89.5 fL (80-97); Nucleated Red Blood Cells % 0.2 /100 WBC (0.0-0.4); Platelet Count 311 10^3/uL (150-450); Red Blood Count 2.92 10^6/uL (4.06-5.63); Red Cell Distribution Width 17.8 % (12-17)
[2022-08-19 06:43] LABS: Calcium 8.2 mg/dL (8.6-10.3); Creatinine, Serum 3.22 mg/dL (0.67-1.17); eGFR CKD-EPI 22.4 (>60)
[2022-08-19 08:02] LABS: C Reactive Protein 11.28 mg/L (<8.01)
[2022-08-19] MEDS: Heparin 5000 UNITS/ML 1 mL VIAL SUBCUT SCH ×2 (08:38→21:16)
[2022-08-19] MEDS: Insulin GLARGINE 100 un/ml 10 ml VIAL SUBCUT SCH (11:54)
[2022-08-20 06:25] LABS: ABS Basophils 0.1 10^3/uL (0.0-0.1); ABS Eosinophils 0.1 10^3/uL (0.0-0.5); ABS Monocytes 0.6 10^3/uL (0.0-1.1); ABS Neutrophils 4.5 10^3/uL (1.5-7.6); ABS Nucleated RBC 0.01 10^3/ul; Eosinophil % 1.9 %; Hematocrit 23.8 % (38-53); Hemoglobin 8.1 g/dL (13.2-16.3); Lymphocyte % 26.9 %; Mean Corpuscular Hemoglobin 30.3 pg (27-33); Mean Corpuscular Volume 89.1 fL (80-97); Nucleated Red Blood Cells % 0.2 /100 WBC (0.0-0.4); Platelet Count 284 10^3/uL (150-450); Red Blood Count 2.68 10^6/uL (4.06-5.63); Red Cell Distribution Width 17.1 % (12-17); White Blood Count 7.3 10^3/uL (3.6-10.2)
[2022-08-20 06:30] LABS: Calcium 8.2 mg/dL (8.6-10.3); Creatinine, Serum 3.83 mg/dL (0.67-1.17); Potassium 4.3 mmol/L (3.5-5.0); eGFR CKD-EPI 18.2 (>60)
[2022-08-20] MEDS: Heparin 5000 UNITS/ML 1 mL VIAL SUBCUT SCH ×2 (07:53→21:25)
[2022-08-20] MEDS: Insulin GLARGINE 100 un/ml 10 ml VIAL SUBCUT SCH (07:54)
[2022-08-20] MEDS: Heparin 1,000 UNIT/ML 10 ml (10,000 UNITS) CATHLAB/DIALYSIS DIALYSIS SCH ×4 (08:54→12:45)
[2022-08-20 16:42] LABS: Albumin/Globulin Ratio 0.02; Gamma Globulin 6193.7 mg/24 h; Total Protein, 24 HR, U 7202 mg/24 h (<229); Urine Volume 1300 mL
[2022-08-20] MEDS: ceFAZolin 2 GM in NS PREMIX 2 GM/100 ML BAG IVPB SCH (17:34)
[2022-08-20 23:15] LABS: Varicella Zoster Source L HIP SKIN LESION; Varicella Zoster Virus PCR Negative (Negative)
[2022-08-21 06:29] LABS: ABS Basophils 0.1 10^3/uL (0.0-0.1); ABS Eosinophils 0.1 10^3/uL (0.0-0.5); ABS Lymphocytes 2.7 10^3/uL (1.0-4.8); ABS Monocytes 0.9 10^3/uL (0.0-1.1); ABS Neutrophils 5.2 10^3/uL (1.5-7.6); ABS Nucleated RBC 0.01 10^3/ul; Eosinophil % 1.3 %; Hematocrit 25.3 % (38-53); Hemoglobin 8.5 g/dL (13.2-16.3); Lymphocyte % 29.9 %; Mean Corpuscular Hemoglobin 30.4 pg (27-33); Mean Corpuscular Hgb Conc 33.7 g/dL (31-36); Mean Corpuscular Volume 90.1 fL (80-97); Mean Platelet Volume 6.7 fL (7.5-11.2); Nucleated Red Blood Cells % 0.1 /100 WBC (0.0-0.4); Platelet Count 295 10^3/uL (150-450); Red Blood Count 2.81 10^6/uL (4.06-5.63); Red Cell Distribution Width 17.1 % (12-17); White Blood Count 8.9 10^3/uL (3.6-10.2)
[2022-08-21 07:09] LABS: Calcium 8.4 mg/dL (8.6-10.3); Creatinine, Serum 3.33 mg/dL (0.67-1.17); Potassium 3.8 mmol/L (3.5-5.0); eGFR CKD-EPI 21.5 (>60)
[2022-08-21] MEDS: Insulin GLARGINE 100 un/ml 10 ml VIAL SUBCUT SCH (10:00)
[2022-08-21] MEDS: Heparin 5000 UNITS/ML 1 mL VIAL SUBCUT SCH ×2 (10:02→20:23)
[2022-08-21 11:45] LABS: Albumin/Globulin Ratio 0.4 (1-3); Calcium 8.5 mg/dL (8.6-10.3); Creatinine, Serum 3.33 mg/dL (0.67-1.17); Globulin 7.5 g/dL (2-4); Total Bilirubin 0.2 mg/dL (0.2-1.0); Total Protein 10.5 g/dL (6.4-8.9); eGFR CKD-EPI 21.5 (>60)
[2022-08-21] MEDS ORDERED: Vancomycin 1,500 MG in NS 0.9% 250 ml 250 ML IVPB ONE (14:38)
[2022-08-22] MEDS: Heparin 5000 UNITS/ML 1 mL VIAL SUBCUT SCH ×2 (08:34→20:31)
[2022-08-22] MEDS: Insulin GLARGINE 100 un/ml 10 ml VIAL SUBCUT SCH (08:34)
[2022-08-23 06:17] LABS: ABS Eosinophils 0.1 10^3/uL (0.0-0.5); ABS Lymphocytes 2.3 10^3/uL (1.0-4.8); ABS Monocytes 0.6 10^3/uL (0.0-1.1); ABS Neutrophils 4.1 10^3/uL (1.5-7.6); ABS Nucleated RBC 0.01 10^3/ul; Eosinophil % 1.3 %; Hematocrit 27.7 % (38-53); Hemoglobin 9.2 g/dL (13.2-16.3); Mean Corpuscular Hemoglobin 30.1 pg (27-33); Mean Corpuscular Hgb Conc 33.3 g/dL (31-36); Mean Corpuscular Volume 90.6 fL (80-97); Nucleated Red Blood Cells % 0.1 /100 WBC (0.0-0.4); Platelet Count 243 10^3/uL (150-450); Red Blood Count 3.06 10^6/uL (4.06-5.63); Red Cell Distribution Width 17.7 % (12-17); White Blood Count 7.2 10^3/uL (3.6-10.2)
[2022-08-23 07:09] LABS: Calcium 8.6 mg/dL (8.6-10.3); Creatinine, Serum 3.84 mg/dL (0.67-1.17); Potassium 4.3 mmol/L (3.5-5.0); eGFR CKD-EPI 18.1 (>60)
[2022-08-23] MEDS: Heparin 5000 UNITS/ML 1 mL VIAL SUBCUT SCH (09:27)
[2022-08-23] MEDS: Insulin GLARGINE 100 un/ml 10 ml VIAL SUBCUT SCH (09:27)
[2022-08-23] MEDS: Heparin 1,000 UNIT/ML 10 ml (10,000 UNITS) CATHLAB/DIALYSIS DIALYSIS SCH ×5 (10:23→13:57)
[2022-08-23 13:56] LABS: Urine Appearance Clear; Urine Bilirubin Negative (Negative); Urine Blood 1+ (Negative); Urine Color Straw; Urine Glucose 2+(150 mg/dL) (Negative); Urine Ketones Negative (Negative); Urine Nitrite Negative (Negative); Urine Protein 1+(30 mg/dL) (Negative); Urine Specific Gravity 1.006 (1.002-1.030); Urine Urobilinogen Negative (Negative)
[2022-08-23 14:01] LABS: Urine Bacteria 1+ (Absent); Urine Red Blood Cell Trace(0-2/hpf) (Absent); Urine White Blood Cell 3+(>20/hpf) (Absent); Urine Yeast Present (Absent)
[2022-08-23 16:43] VITALS: BP 147/75
[2022-08-23] MEDS ORDERED: Vancomycin 1,000 MG in NS 0.9% 250 ml 250 ML IVPB SCH (17:00)
[2022-08-24 17:21] LABS: Kappa Free Light Chain 1260 mg/dL; Lambda Free Light Chain, S 1.06 mg/dL
[2022-08-30 10:44] LABS: BM Result Summary Normal
[2022-08-31 14:10] LABS: Result Summary Abnormal
== END 2022-08-23 17:57 | disposition home or self-care (01) | DRG 951 ==
LOC: ED 07:22 → SUATTDRO 13:19 → EDHOLD 13:19 → MEDTELE 17:31
PROVIDERS: ADMIT Internal Medicine; ATTEND Internal Medicine